=== PATIENT | male | born 1955 | race Caucasian/White ===

== ENCOUNTER 2020-07-03 10:29 | Emergency (ER) | payer MEDICARE, OTHER ==
[2020-07-03 10:54] LABS: CHLORIDE,CL 88 mmol/L (98-107)
[2020-07-03 10:59] LABS: SODIUM,NA 123 mmol/L (136-145)
[2020-07-03] MEDS: Sodium Chloride 0.9% 1,000 ML IV ONE (11:16)
[2020-07-03] MEDS ORDERED: Sodium Chloride 0.9% 10 ML Syringe FLUSH PRN (11:16)
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
== END 2020-07-03 13:20 | disposition home or self-care (01) ==
LOC: LL.ED 10:29
DX: S50.02XA Contusion of left elbow, initial encounter (principal); E87.1 Hypo-osmolality and hyponatremia; R07.81 Pleurodynia; I10 Essential (primary) hypertension; Z88.8 Allergy status to other drugs, medicaments and biological substances; Z88.1 Allergy status to other antibiotic agents; Z79.899 Other long term (current) drug therapy; Z88.2 Allergy status to sulfonamides; V86.59XA Driver of other special all-terrain or other off-road motor vehicle injured in nontraffic accident, initial encounter
CPT/HCPCS: 36415; 71046; 73060-LT; 73090-LT; 80053; 85025; 99284-25; J7030